=== PATIENT | female | born 1965 | race Caucasian/White ===

== ENCOUNTER 2017-08-15 11:22 | Emergency (ER) | payer SELFPAY ==
[~2017-08-15] VITALS: Ht 177.8 cm; Wt 114.4 kg
[2017-08-15 16:20] LABS: HEMATOCRIT 41.1 % (36.0-46.0); HEMOGLOBIN 13.7 G/DL (11.9-15.5); MCH 33.4 PG (29.0-34.0); MCHC 33.3 G/DL (30.0-36.0); MCV 100.2 FL (83-99); PLATELET COUNT 282 K/uL (156-360); RBC DIS.WIDTH-CV 12.7 % (11.8-14.6); RBC DIS.WIDTH-SD 47.1 % (39-53); WHITE BLOOD COUNT 3.8 K/uL (4.1-10.2)
[2017-08-15 16:32] LABS: ALBUMIN 3.6 g/dL (3.2-4.8); CHLORIDE 107 mEq/L (99-109)
[2017-08-15 16:33] LABS: SODIUM 142 mEq/L (136-147)
[2017-08-15 16:35] LABS: GLUCOSE 86 mg/dL (70-99); TOTAL PROTEIN 6.2 g/dL (6.4-8.3)
[2017-08-15 16:37] LABS: TOTAL BILIRUBIN 0.3 mg/dL (0.0-1.0)
[2017-08-15 16:38] LABS: ALKALINE PHOSPHATASE 95 IU/L (3-129); CREATININE 0.8 mg/dL (0.6-1.3); GFR ESTIMATE (CALCULATED) > 59 mL/min/
[2017-08-15 16:39] LABS: UREA NITROGEN (BUN) 14 mg/dL (9-23)
[2017-08-15 16:40] LABS: AST (GOT) 26 IU/L (2-34)
[2017-08-15 16:41] LABS: ALT (GPT) 23 IU/L (3-49)
[2017-08-15] MEDS ORDERED: NAPROSYN500 MG PO (16:58)
[2017-08-15] MEDS ORDERED: DELTASONE20 M1 PO (16:58)
[2017-08-15] MEDS ORDERED: DAPSONE100 MG PO (16:58)
[2017-08-15] MEDS ORDERED: ATARAX,VISTARIL50 MG PO (16:58)
[2017-08-15 17:17] VITALS: BP 151/109
== END 2017-08-15 17:18 | disposition home or self-care (01) ==
LOC: EME 11:22
PROVIDERS: Nurse Practitioner Family
DX: L95.8 Other vasculitis limited to the skin (principal); L50.9 Urticaria, unspecified; F41.9 Anxiety disorder, unspecified; F17.200 Nicotine dependence, unspecified, uncomplicated
CPT/HCPCS: 80053; 85027; 99281; 99284; J7512; Q0177

== ENCOUNTER 2017-10-27 13:37 | Emergency (ER) | payer SELFPAY ==
[~2017-10-27] VITALS: Ht 177.8 cm; Wt 106.0 kg
[~2017-10-27 13:37] MED LIST: ATARAX,VISTARIL50 MG PO; DAPSONE100 MG PO; DELTASONE20 M1 PO; NAPROSYN500 MG PO
[2017-10-27 14:33] LABS: BASOPHIL (%) 0.3 % (0-1); EOSINOPHIL (%) 2.5 % (0-5); EOSINOPHIL COUNT 0.2 K/uL (0-0.3); HEMATOCRIT 42.1 % (36.0-46.0); HEMOGLOBIN 13.9 G/DL (11.9-15.5); IMMATURE GRANULOCYTE (%) 0.2 % (0.0-0.7); LYMPHOCYTE (%) 19.1 % (15-42); LYMPHOCYTE COUNT 1.2 K/uL (1.0-2.8); MONOCYTE (%) 9.7 % (3-12); MONOCYTE COUNT 0.6 K/uL (0-0.8); NEUTROPHIL (%) 68.2 % (45-76); NEUTROPHIL COUNT 4.4 K/uL (1.8-6.4); PLATELET COUNT 392 K/uL (156-360); RBC DIS.WIDTH-CV 12.4 % (11.8-14.6); RBC DIS.WIDTH-SD 45.8 % (39-53); RED BLOOD COUNT 4.21 M/uL (3.80-5.20); WHITE BLOOD COUNT 6.5 K/uL (4.1-10.2)
[2017-10-27 14:42] LABS: CHLORIDE 105 mEq/L (99-109); POTASSIUM 4.1 mEq/L (3.7-5.4); SODIUM 140 mEq/L (136-147)
[2017-10-27 14:44] LABS: GLUCOSE 119 mg/dL (70-99)
[2017-10-27 14:48] LABS: CREATININE 0.8 mg/dL (0.6-1.3); GFR ESTIMATE (CALCULATED) > 59 mL/min/
[2017-10-27 14:49] LABS: UREA NITROGEN (BUN) 11 mg/dL (9-23)
[2017-10-27] MEDS ORDERED: ATARAX,VISTARIL50 MG PO (14:52)
[2017-10-27] MEDS ORDERED: PREDNISONE10 MG PO (14:52)
[2017-10-27] MEDS ORDERED: KEFLEX500 MG PO (14:54)
[2017-10-27 15:32] VITALS: BP 115/69
== END 2017-10-27 15:33 | disposition home or self-care (01) ==
LOC: EME 13:37 → EXP 13:37
DX: L50.9 Urticaria, unspecified (principal); L03.116 Cellulitis of left lower limb; L03.115 Cellulitis of right lower limb; F17.200 Nicotine dependence, unspecified, uncomplicated
CPT/HCPCS: 80048; 83605; 85025; 99281; 99284; J7512

== ENCOUNTER 2017-11-16 19:30 | Inpatient (IN) | payer OTHER ==
[~2017-11-16] VITALS: Ht 177.8 cm; Wt 105.8 kg
[~2017-11-16 19:30] MED LIST changes: +KEFLEX500 MG PO; +PREDNISONE10 MG PO
[2017-11-16 20:51] LABS: BASOPHIL (%) 0.6 % (0-1); EOSINOPHIL (%) 3.2 % (0-5); EOSINOPHIL COUNT 0.2 K/uL (0-0.3); HEMATOCRIT 40.2 % (36.0-46.0); HEMOGLOBIN 13.4 G/DL (11.9-15.5); IMMATURE GRANULOCYTE (%) 0.2 % (0.0-0.7); LYMPHOCYTE (%) 22.9 % (15-42); LYMPHOCYTE COUNT 1.2 K/uL (1.0-2.8); MCH 33.2 PG (29.0-34.0); MCHC 33.3 G/DL (30.0-36.0); MCV 99.5 FL (83-99); MONOCYTE (%) 7.8 % (3-12); MONOCYTE COUNT 0.4 K/uL (0-0.8); NEUTROPHIL (%) 65.3 % (45-76); NEUTROPHIL COUNT 3.3 K/uL (1.8-6.4); PLATELET COUNT 275 K/uL (156-360); RBC DIS.WIDTH-CV 13.2 % (11.8-14.6); RBC DIS.WIDTH-SD 48.3 % (39-53); RED BLOOD COUNT 4.04 M/uL (3.80-5.20)
[2017-11-16 20:59] LABS: CHLORIDE 106 mEq/L (99-109); POTASSIUM 3.7 mEq/L (3.7-5.4); SODIUM 143 mEq/L (136-147)
[2017-11-16 21:01] LABS: GLUCOSE 102 mg/dL (70-99)
[2017-11-16 21:04] LABS: CREATININE 0.9 mg/dL (0.6-1.3); GFR ESTIMATE (CALCULATED) > 59 mL/min/
[2017-11-16 21:05] LABS: UREA NITROGEN (BUN) 9 mg/dL (9-23)
[2017-11-16] MEDS ORDERED: ADVIL200 MG PO (21:31)
[2017-11-16] MEDS ORDERED: BENADRYL25 MG PO (21:32)
[2017-11-16] MEDS ORDERED: ASCORBIC ACID100 MG PO (21:32)
[2017-11-16] MEDS ORDERED: ONE DAILY MUL400 MCG PO (21:32)
[2017-11-16] MEDS ORDERED: GABA PO (21:34)
[2017-11-16] MEDS ORDERED: OTC ALLERGY MED (21:34)
[2017-11-16] MEDS ORDERED: NAPROSYN250 MG PO (21:35)
[2017-11-16 23:42] LABS: ALBUMIN 3.5 g/dL (3.2-4.8)
[2017-11-16 23:45] LABS: TOTAL PROTEIN 6.1 g/dL (6.4-8.3)
[2017-11-16 23:46] LABS: TOTAL BILIRUBIN 0.4 mg/dL (0.0-1.0)
[2017-11-16 23:48] LABS: ALKALINE PHOSPHATASE 72 IU/L (3-129)
[2017-11-16 23:50] LABS: AST (GOT) 22 IU/L (2-34); DIRECT BILIRUBIN 0.2 mg/dL (0.0-0.3)
[2017-11-16 23:51] LABS: ALT (GPT) 18 IU/L (3-49)
[2017-11-17 01:27] VITALS: BP 131/70
[2017-11-17 03:40] LABS: C-REACTIVE PROTEIN 29.9 MG/L (0-10)
[2017-11-17 05:06] VITALS: BP 159/74
[2017-11-17 08:21] VITALS: BP 130/76
[2017-11-17 10:53] LABS: HEPATITIS C ANTIBODY Nonreactive
[2017-11-17 12:33] VITALS: BP 128/75
[2017-11-17 23:51] VITALS: BP 130/72
[2017-11-18 08:50] VITALS: BP 131/71
[2017-11-18] MEDS ORDERED: PREDNISONE10 MG PO (10:15)
[2017-11-18] MEDS ORDERED: CEFTIN500 MG PO (10:15)
[2017-11-18] MEDS ORDERED: KENALOG,ARISTOC80 G1 TP (10:15)
== END 2017-11-18 12:58 | disposition home or self-care (01) | DRG 607 ==
LOC: EME 19:30 → 2EAST 22:48 → EDOF 22:48 → ENRESERV 22:49 → 2EAST 11-17 01:11
PROVIDERS: Emergency Medicine; Hospitalist
DX: L25.1 Unspecified contact dermatitis due to drugs in contact with skin (principal); T49.0X5A Adverse effect of local antifungal, anti-infective and anti-inflammatory drugs, initial encounter; R03.0 Elevated blood-pressure reading, without diagnosis of hypertension; R70.0 Elevated erythrocyte sedimentation rate; R79.82 Elevated C-reactive protein (CRP); F12.90 Cannabis use, unspecified, uncomplicated; H00.012 Hordeolum externum right lower eyelid; I87.2 Venous insufficiency (chronic) (peripheral); F17.210 Nicotine dependence, cigarettes, uncomplicated; E66.9 Obesity, unspecified; Z68.33 Body mass index [BMI] 33.0-33.9, adult
CPT/HCPCS: 71046; 80048; 80076; 85025; 85651; 86038; 86140; 86803; 87040; 93970; 99281; 99285; J0696; J1200; J1650; J2270; J2543; J2930; J3370; J7030; S0028